=== PATIENT | male | born 1950 | race Caucasian/White ===

== ENCOUNTER 2016-06-16 12:15 | Emergency (ER) | payer OTHER | END 2016-06-16 13:51 | disposition home or self-care (01) | DX: R07.9 Chest pain, unspecified (principal); I10 Essential (primary) hypertension ==

== ENCOUNTER 2018-05-29 11:04 | Outpatient (CLI) | payer MEDICARE, OTHER ==
[2018-05-29 11:37] LABS: BASOPHILS # (AUTO) 0.1 10^3/uL (0.0-0.1); BASOPHILS % (AUTO) 1.5 %; EOSINOPHILS # (AUTO) 0.4 10^3/uL (0.0-0.7); EOSINOPHILS % (AUTO) 5.1 %; HGB - HEMOGLOBIN 16.8 g/dL (14.0-18.0); LYMPHOCYTES # (AUTO) 1.9 10^3/uL (1.5-3.5); MEAN CORPUSCULAR HEMOGLOBIN 26.6 pg (27.0-31.0); MEAN CORPUSCULAR VOLUME 80.6 fL (80.0-94.0); MEAN PLATELET VOLUME 7.8 fL (7.4-11.4); MONOCYTES # (AUTO) 0.6 10^3/uL (0.0-1.0); MONOCYTES % (AUTO) 6.4 %; NEUTROPHILS # (AUTO) 5.6 10^3/uL (1.5-6.6); PLT - PLATELET COUNT 291 10^3/uL (130-450); RED CELL DISTRIBUTION WIDTH 16.7 % (12.0-15.0); WHITE BLOOD COUNT 8.7 x10^3/uL (4.8-10.8)
[2018-05-29 12:10] LABS: ALBUMIN 4.2 g/dL (3.2-5.5); ALBUMIN/GLOBULIN RATIO 1.2 (1.0-2.2); ALKALINE PHOSPHATASE 73 IU/L (42-121); ALT ALANINE AMINOTRANSFERASE 22 IU/L (10-60); AST ASPARTATE AMINOTRANSFERASE 21 IU/L (10-42); BUN - BLOOD UREA NITROGEN 15 mg/dL (6-20); CARBON DIOXIDE - CO2 28 mmol/L (21-32); CHLORIDE 104 mmol/L (101-111); CHOL/HDL RATIO 6.9 (<5.0); CHOLESTEROL 247 mg/dL; CREATININE 1.2 mg/dL (0.6-1.2); GFR - MDRD 61 (>89); GLUCOSE 100 mg/dL (70-100); HDL CHOLESTEROL 36 mg/dL; LDL CHOLESTEROL,CALCULATED 159 mg/dL; LDL/HDL RATIO 4.4 (<3.6); SODIUM 139 mmol/L (135-145); TOTAL PROTEIN 7.7 g/dL (6.7-8.2); VLDL CHOLESTEROL 52 mg/dL
[2018-05-29 12:25] LABS: THYROID STIMULATING HORMONE 5.65 uIU/mL (0.34-5.60)
[2018-05-29 12:29] LABS: FREE T4 (FREE THYROXINE) 0.91 ng/dL (0.58-1.64)
[2018-05-30 13:27] LABS: HEPATITIS C ANTIBODY NON-REACTIVE (NON-REACTIVE)
== END 2018-05-29 11:05 | disposition home or self-care (01) ==
LOC: LAB 11:04
PROVIDERS: ATTEND Internal Medicine
DX: E78.5 Hyperlipidemia, unspecified (principal); E02 Subclinical iodine-deficiency hypothyroidism; I10 Essential (primary) hypertension; E78.3 Hyperchylomicronemia; R35.1 Nocturia; R79.81 Abnormal blood-gas level; Z11.59 Encounter for screening for other viral diseases; Z13.6 Encounter for screening for cardiovascular disorders; Z79.899 Other long term (current) drug therapy
CPT/HCPCS: 36415; 80053; 80061; 83721; 84153; 84439; 84443; 85025; 86803

== ENCOUNTER 2018-12-20 04:06 | Emergency (ER) | payer MEDICARE, OTHER ==
[2018-12-20] MEDS ORDERED: BUFFERED LIDOCAINE 10 ML SYRINGE SUBQ STA (04:20)
[2018-12-20] MEDS ORDERED: TETANUS/DIPHTHERIA/PERTUSSIS 0.5 ML SYRINGE IM ONE (05:45)
[2018-12-20] MEDS ORDERED: AMOX/CLAV 875 MG/125 MG TABLET PO STA (05:45)
--- NOTE | 2018-12-20 05:51 | ED Physician Documentation ---
PD HPI ANIMAL BITE - Stated complaint Stated Complaint: DOGBITE TO FACE - Chief complaint Chief Complaint: Laceration - History obtained from History obtained from: Patient - History of Present Illness Location of injury(ies): Face Details of the event: Dog, Bite, Pet animal, Well appearing, Immunized, Provoked, Animal can be observed, Animal control notified Timing - onset: Today Timing - duration: Minutes Timing - details: Abrupt onset, Still present Improved by: Rest Worsened by: Moving Associated symptoms: No: Weakness, Numbness, Tingling, Swelling, Discolored Contributing factors: No: Immunocompromised, Asplenic Similar symptoms before: Has not had sx before Recently seen: Not recently seen - Additional information Additional information: 68-year-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 He has a significant macerated laceration to the face and some defensive wounds to the left index and middle finger. Review of Systems Constitutional: denies: Fever Ears: denies: Ear pain Nose: denies: Congestion Throat: denies: Sore throat Respiratory: denies: Cough GI: denies: Nausea, Vomiting, Diarrhea Skin: reports: Laceration (s), Bite / sting Musculoskeletal: denies: Neck pain, Back pain, Extremity pain Neurologic: denies: Generalized weakness, Focal weakness, Numbness PD PAST MEDICAL HISTORY - Past Medical History Cardiovascular: Hypertension Respiratory: None Endocrine/Autoimmune: None GI: None : None HEENT: None Psych: None Musculoskeletal: Other Derm: None - Past Surgical History Past Surgical History: Yes General: Cholecystectomy, Colonoscopy HEENT: Tonsil/Adenoidectomy - Present Medications Home Medications: Ambulatory Orders Medication Instructions Recorded Confirmed Metoprolol Succinate 50 mg PO BID 12/11/13 06/16/16 Amlodipine Besylate 5 mg PO DAILY 12/05/14 06/16/16 Doxazosin [Cardura] 4 mg PO QPM 12/05/14 06/16/16 Lisinopril 40 mg PO BID 12/05/14 06/16/16 Amox/Clav 875/125 [Augmentin] 1 each PO Q12H #10 tablet 12/20/18 - Allergies Allergies/Adverse Reactions: Allergies Allergy/AdvReac Type Severity Reaction Status Date / Time No Known Drug Allergies Allergy Verified 12/20/18 04:17 - Social History Does the pt smoke?: No Smoking Status: Never smoker Does the pt drink ETOH?: Yes Does the pt have substance abuse?: No - POLST Patient has POLST: No PD ED PE NORMAL - Vitals Vital signs reviewed: Yes (hypertensive ) - General General: Alert and oriented X 3, No acute distress, Well developed/nourished - HEENT HEENT: PERRL, EOMI, Other (There is an 11 cm jagged C-shaped laceration with mu ltiple flaps along the border of the right cheek. The laceration is deep to the fascia and a tissue plane is . There is free communication under the cheek. There is no obvious contamination. 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, No motor deficit, No sensory deficit, Normal speech Eye Opening: Spontaneous Motor: Obeys Commands Verbal: Oriented GCS Score: 15 - Psych Psych: Normal mood, Normal affect PD ED PE EXPANDED - HEENT HEENT Visual: 1 - laceration (jagged torn edges multiple flaps) 2 - laceration (jagged torn edges multiple flaps) 3 - laceration (jagged torn edges multiple flaps) 4 - laceration (puncture) Results - Vitals Vitals: Vital Signs - 24 hr 12/20/18 04:14 Temperature 36.4 C L Heart Rate 84 Respiratory 18 Rate Blood Pressure 151/109 H O2 Saturation 97 Oxygen O2 Source Room air Procedures - Laceration (location) face Length in cm: 11 Wound type: Curved, Stellate, Irregular, Flap (multiple), Into subcut fat, Clean Neurovascular status: Sensory intact, Motor intact, Vascular intact Anesthesia: Lidocaine 1%, With bicarb Wound Preparation: Hibiclens, Irrigated copiously NS, Wound explored, To the base, Multiple flaps aligned Skin layer closure: Nylon, Interrupted, Size #-0 - enter number (6-0), Sutures - enter # (multiple--5 sticks of suture) Other: Patient tolerated well, No complications, Neurovascular intact, Tetanus booster given Complexity: Intermediate PD MEDICAL DECISION MAKING - ED course Complexity details: reviewed old records, considered differential, d/w patient ED course: 68-year-old male was bit in the face with a provoked attack by a pitbull. The dog has left a macerated laceration to the patient's face which is deep and tore a lot of tissue. The repair was onerous and required alignment of multiple tiny flaps. Scarring will be present. The patient is given a tetanus booster he is placed on antibiotic prophylaxis with Augmentin and instructed return for suture removal in 5 to 6 days. Departure - Departure Disposition: 01 Home, Self Care Clinical Impression: Laceration of face, multiple sites, complicated Dog bite of cheek Qualifiers: Encounter type: initial encounter Laterality: right Qualified Code(s): S01.451A - Open bite of right cheek and temporomandibular area, initial encounter; W54.0XXA - Bitten by dog, initial encounter Condition: Stable Instructions: ED Laceration Facial Sutr Tape Follow-Up: Gaby Shaikh MD [Primary Care Provider] - Prescriptions: Amox/Clav 875/125 [Augmentin] 1 each PO Q12H #10 tablet Comments: Sutures will need to be removed in 5 to 6 days return to the emergency department or follow-up with Dr. Shaikh.
[2018-12-20 06:30] VITALS: BP 150/118
== END 2018-12-20 06:30 | disposition home or self-care (01) ==
LOC: ED 04:06
DX: S01.451A Open bite of right cheek and temporomandibular area, initial encounter (principal); S61.251A Open bite of left index finger without damage to nail, initial encounter; S61.253A Open bite of left middle finger without damage to nail, initial encounter; W54.0XXA Bitten by dog, initial encounter; Y92.009 Unspecified place in unspecified non-institutional (private) residence as the place of occurrence of the external cause; Z23 Encounter for immunization; I10 Essential (primary) hypertension
CPT/HCPCS: 12054; 90471; 90715; 99282; 99284; A9270

== ENCOUNTER 2019-01-25 06:23 | Day surgery (SDC) | payer MEDICARE, OTHER ==
[2019-01-25] MEDS ORDERED: PHENYLEPHRINE 2.5% OPHTH 2 ML DROPS ONE (06:28)
[2019-01-25] MEDS ORDERED: KETOROLAC 0.45% OPHTH DROPS ONE (06:28)
[2019-01-25] MEDS ORDERED: CYCLOPENTOLATE 1% OPHTH DROPS 2 ML ONE (06:28)
[2019-01-25] MEDS ORDERED: PROPARACAINE 0.5% OPHTH DROPS 15 ML ONE (06:28)
[2019-01-25] MEDS ORDERED: CYCLOPENTOLATE 1% OPHTH DROPS 2 ML LEFTEYE ONE (06:45)
[2019-01-25] MEDS ORDERED: PROPARACAINE 0.5% OPHTH DROPS 15 ML LEFTEYE ONE (06:45)
[2019-01-25] MEDS ORDERED: KETOROLAC 0.45% OPHTH DROPS LEFTEYE ONE (06:45)
[2019-01-25] MEDS ORDERED: PHENYLEPHRINE 2.5% OPHTH 2 ML DROPS LEFTEYE ONE (06:45)
[2019-01-25] MEDS ORDERED: LACTATED RINGERS 500 ML IV ONE (06:56)
--- NOTE | 2019-01-25 07:47 | ANESTHESIA ---
Pre-Anesthesia VS, & Labs - Diagnosis nuclear sclerotic cataract - Procedure left cataract extraction with intraocular lens implant Vital Signs: Temp Pulse Resp BP Pulse Ox 36.2 C L 56 L 18 168/99 H 97 01/25/19 06:35 01/25/19 06:35 01/25/19 06:35 01/25/19 06:35 01/25/19 06:35 Height 5 ft 9 in Weight (kg) 102 kg Body Mass Index 34.8 - NPO >8 hours Home Medications and Allergies Metoprolol Succinate 50 mg PO BID 12/11/13 Amlodipine Besylate 5 mg PO DAILY 12/05/14 Doxazosin [Cardura] 4 mg PO QPM 12/05/14 Lisinopril 40 mg PO BID 12/05/14 Allergies/Adverse Reactions: Allergies Allergy/AdvReac Type Severity Reaction Status Date / Time No Known Drug Allergies Allergy Verified 12/20/18 04:17 Anes History & Medical History - Anesthetic History Anesthesia Complications: reports: No previous complications - Medical History Cardiovascular: reports: Hypertension Pulmonary: reports: None Gastrointestinal: reports: None Urinary: reports: None Musculoskeletal: reports: Other Endocrine/Autoimmune: reports: None Skin: reports: None, Other (recent dog bit to the face, healing well, denies pain, still edema) Smoking Status: Never smoker - Surgical History General: Cholecystectomy, Colonoscopy Eyes Ears Nose Throat (EENT): Tonsil/Adenoidectomy Exam General: Alert Dental: WNL Mouth Opening: Greater than 4 Fingerbreadths Neck Mobility: Normal Mallampati classification: II Thyromental Distance: greater than 6 cm Respiratory: Lungs clear Cardiovascular: Regular rate, Normal S1, Normal S2 Mental/Cognitive Status: Alert/Oriented X3 Plan Anesthesia Type: MAC Consent for Procedure(s) Verified and Reviewed: Yes Code Status: Attempt Resuscitation ASA classification: 2-Mild systemic disease Is this case an emergency?: No
[2019-01-25] MEDS ORDERED: MIDAZOLAM 2 MG/2 ML VIAL IVP ONE (08:02)
[2019-01-25] MEDS ORDERED: BRIMONIDINE 0.2% OPHTH DROPS 5 ML OPTH ONE (08:08)
[2019-01-25] MEDS ORDERED: EPINEPHrine 1 MG/ML AMP IVP ONE (08:08)
[2019-01-25] MEDS ORDERED: VANCOMYCIN OPHTHALMI 8MG/0.8ML 8 MG/0.8 ML SYRINGE IO ONE ×2 (08:09→09:51)
[2019-01-25] MEDS ORDERED: CHONDR SULF/HYALURONATE SYRINGE IO ONE (08:09)
[2019-01-25] MEDS ORDERED: TRIAMCIN/MOXIFLOX OPHTHALMIC 0.6 ML VIAL IO ONE ×2 (08:09→09:50)
[2019-01-25] MEDS ORDERED: TIMOLOL 0.5% OPHTH DROPS OPTH ONE (08:09)
[2019-01-25] MEDS ORDERED: BSS/LIDOCAINE/EPINEPHRINE 1 ML SYRINGE IO ONE (08:09)
[2019-01-25 08:35] VITALS: BP 147/81
--- NOTE | 2019-01-25 09:12 | OPERATIVE REPORT ---
DATE OF SERVICE: 01/25/2019 Physician: Juan Goldstein MD PREOPERATIVE DIAGNOSIS: Visually significant cataract, left eye. This was his first cataract surger y. POSTOPERATIVE DIAGNOSIS: Visually significant cataract, left eye. This was his first cataract surge ry. DESCRIPTION OF PROCEDURE: Phacoemulsification with posterior chamber intraocular lens implant, left eye. SURGEON: Juan Goldstein MD ANESTHESIA: Monitored anesthesia care. COMPLICATIONS: None. OPERATIVE INDICATIONS: This is a 68-year-old man with progressive vision loss in the left eye due to 3+ nuclear sclerotic cataract. Best corrected visual acuity was 20/40, with glare to 20/70 in the l eft eye. Indications for surgery were difficulty seeing street signs, difficulty driving in low ligh t or at night, difficulty driving at night because of headlights from other vehicles, and difficulty with glare or bright lights in any situation. He was consented at length concerning risks and benefi ts of cataract surgery, after which he expressed a desire to proceed with surgery. OPERATIVE PROCEDURE: Patient was taken into OR #3 and placed under monitored anesthesia care. A yoel gical timeout was conducted confirming correct patient, correct procedure, and correct surgical site. He was given topical anesthesia, then prepped and draped in the usual sterile fashion. The eye was entered at the 6 and 3 o'clock positions. Intracameral Shugarcaine was injected into the anterior c hamber, followed by Viscoat. A continuous-tear curvilinear capsulorrhexis was performed. The nucleu s was hydrodissected and phacoemulsified. The cortex was evacuated using automated infusion and aspi ration. Provisc was injected in the capsular bag, and a 19.0 diopter intraocular lens was inserted i n the bag. I and A was used to evacuate the viscoelastic materials. The eye was inflated to physiol ogic pressure using balanced salt solution and found to be watertight. Approximately 0.25 mL of a mi xture of triamcinolone, moxifloxacin was injected transsclerally into the vitreous in the inferotempo ral quadrant. An additional 0.55 mL mixture of triamcinolone, moxifloxacin and vancomycin was inject ed subconjunctivally in the superior quadrant for infection and inflammation prophylaxis. Wound inte grity was checked with Weck-Inocencia sponges. Patient was taken from the operating room in good condition and given postoperative instructions. TD: 01/25/2019 08:29
[2019-01-25] MEDS ORDERED: EPINEPHrine 1 MG/ML AMP ONE (09:49)
[2019-01-25] MEDS ORDERED: BRIMONIDINE 0.2% OPHTH DROPS 5 ML ONE (09:50)
[2019-01-25] MEDS ORDERED: BSS/LIDOCAINE/EPINEPHRINE 1 ML SYRINGE ONE (09:50)
[2019-01-25] MEDS ORDERED: TIMOLOL 0.5% OPHTH DROPS ONE (09:51)
== END 2019-01-25 06:24 | disposition home or self-care (01) ==
LOC: SDS 06:23
PROVIDERS: ATTEND Ophthalmology
PROC: 08RK3JZ Replacement of Left Lens with Synthetic Substitute, Percutaneous Approach (ICD-10-PCS; principal; 2019-01-25 08:00)
DX: H25.12 Age-related nuclear cataract, left eye (principal); I10 Essential (primary) hypertension; Z79.899 Other long term (current) drug therapy
CPT/HCPCS: 66984; A9270; J3490; V2632

== ENCOUNTER 2021-02-18 10:14 | Day surgery (SDC) | payer MEDICARE, OTHER ==
[2021-02-18] MEDS ORDERED: LACTATED RINGERS 1,000 ML IV ONE ×2 (10:44→11:40)
[2021-02-18] MEDS ORDERED: PROPOFOL 500 MG/50 ML 500 MG/50 ML VIAL ONE (10:59)
--- NOTE | 2021-02-18 10:59 | ANESTHESIA ---
Pre-Anesthesia VS, & Labs - Diagnosis screening - Procedure colonoscopy Vital Signs: Temp Pulse Resp BP Pulse Ox 36.2 C L 70 12 158/101 H 98 02/18/21 10:38 02/18/21 10:38 02/18/21 10:38 02/18/21 10:38 02/18/21 10:38 Height: 5 ft 11 in Weight (kg): 107 kg Body Mass Index: 32.8 BMI Classification: Obese - NPO >8 hours - Lab Results Lab results reviewed: Yes Home Medications and Allergies Metoprolol Succinate 50 mg PO BID 12/11/13 Amlodipine Besylate 5 mg PO DAILY 12/05/14 lisinopriL [Lisinopril] 40 mg PO BID 12/05/14 Allergies/Adverse Reactions: Allergies Allergy/AdvReac Type Severity Reaction Status Date / Time No Known Drug Allergies Allergy Verified 12/20/18 04:17 Anes History & Medical History - Anesthetic History Anesthesia Complications: reports: No previous complications Family history of Anesthesia Complications: Denies Family history of Malignant Hyperthermia: Denies - Medical History Cardiovascular: reports: Hypertension Pulmonary: reports: None Gastrointestinal: reports: None Urinary: reports: None Musculoskeletal: reports: Other Endocrine/Autoimmune: reports: None Skin: reports: None, Other Smoking Status: Never smoker - Surgical History General: reports: Cholecystectomy, Colonoscopy Eyes Ears Nose Throat (EENT): reports: Tonsil/Adenoidectomy Exam General: Alert, Oriented x3, Cooperative Dental: WNL Mouth Opening: Greater than 4 Fingerbreadths Mallampati classification: II Thyromental Distance: 4-6 cm Respiratory: Lungs clear, Normal breath sounds Cardiovascular: Regular rate Neurological: Normal speech Mental/Cognitive Status: Alert/Oriented X3, Normal for patient Cognitive Status: Within normal limits Plan Anesthesia Type: Total IV Consent for Procedure(s) Verified and Reviewed: Yes Code Status: Attempt Resuscitation ASA classification: 2-Mild systemic disease Is this case an emergency?: No
[2021-02-18 12:08] VITALS: BP 156/98
--- NOTE | 2021-02-18 12:18 | ANESTHESIA POST OP EVALUATION ---
Anesthesia Post Eval - Post Anesthesia Eval Vitals: Last Vital Signs Temp 36.9 C 02/18/21 12:06 Pulse 63 02/18/21 12:06 Resp 11 L 02/18/21 12:06 BP 156/98 H 02/18/21 12:06 Pulse Ox 97 02/18/21 12:06 CV Function Including HR & BP: Stable Pain Control: Satisfactory Nausea & Vomiting: Negative Mental Status: Baseline Respiratory Status: Airway Patent Hydration Status: Satisfactory Anesthesia Complications: None
== END 2021-02-18 10:15 | disposition home or self-care (01) ==
LOC: SDS 10:14
PROVIDERS: ATTEND Surgery
DX: K64.8 Other hemorrhoids (principal); Z12.11 Encounter for screening for malignant neoplasm of colon; E66.9 Obesity, unspecified; Z68.32 Body mass index [BMI] 32.0-32.9, adult; Z86.010 Personal history of colon polyps
CPT/HCPCS: G0105; J7120

== ENCOUNTER 2021-03-20 13:17 | Outpatient (CLI) | payer MEDICARE, OTHER ==
[2021-03-20 14:01] LABS: CREATININE 1.3 mg/dL (0.6-1.2)
[2021-03-20] MEDS ORDERED: IOVERSOL 320 100 ML VIAL IVP ONE (15:14)
[2021-03-20] MEDS ORDERED: IOPAMIDOL-300 50 ML VIAL ONE (15:51)
== END 2021-03-20 13:18 | disposition home or self-care (01) ==
LOC: DI 13:17
PROVIDERS: ATTEND Surgery
DX: R10.32 Left lower quadrant pain (principal)
CPT/HCPCS: 36415; 82565

== ENCOUNTER 2023-05-11 11:02 | Outpatient (CLI) | payer MEDICARE, OTHER ==
[2023-05-11 11:46] LABS: THYROID STIMULATING HORMONE 5.88 uIU/mL (0.34-5.60)
[2023-05-11 14:10] LABS: CALCIUM 10.1 mg/dL (8.5-10.3); CREATININE 1.3 mg/dL (0.6-1.3); POTASSIUM 4.4 mmol/L (3.5-4.5)
== END 2023-05-11 11:03 | disposition home or self-care (01) ==
LOC: LAB 11:02
PROVIDERS: ATTEND Internal Medicine
DX: I50.9 Heart failure, unspecified (principal); Z79.899 Other long term (current) drug therapy
CPT/HCPCS: 36415; 80048; 83880; 84443

== ENCOUNTER 2023-08-08 10:29 | Outpatient (CLI) | payer MEDICARE, OTHER ==
[2023-08-08 10:42] LABS: BASOPHILS # (AUTO) 0.1 10^3/uL (0.0-0.1); BASOPHILS % (AUTO) 0.9 %; EOSINOPHILS # (AUTO) 0.4 10^3/uL (0.0-0.7); EOSINOPHILS % (AUTO) 4.1 %; HCT - HEMATOCRIT 51.9 % (42.0-52.0); HGB - HEMOGLOBIN 16.6 g/dL (14.0-18.0); LYMPHOCYTES # (AUTO) 2.1 10^3/uL (1.5-3.5); LYMPHOCYTES % (AUTO) 22.3 %; MEAN CORPUSCULAR HEMOGLOBIN 27.2 pg (27.0-31.0); MEAN CORPUSCULAR VOLUME 84.9 fL (80.0-94.0); MEAN PLATELET VOLUME 9.1 fL (7.4-11.4); MONOCYTES # (AUTO) 0.7 10^3/uL (0.0-1.0); MONOCYTES % (AUTO) 7.1 %; NEUTROPHILS # (AUTO) 6.2 10^3/uL (1.5-6.6); NEUTROPHILS % (AUTO) 65.2 %; PLT - PLATELET COUNT 293 10^3/uL (130-450); RED BLOOD COUNT 6.11 10^6/uL (4.70-6.10); RED CELL DISTRIBUTION WIDTH 15.1 % (12.0-15.0); WHITE BLOOD COUNT 9.6 x10^3/uL (4.8-10.8)
[2023-08-08 11:07] LABS: ALBUMIN/GLOBULIN RATIO 1.4 (1.0-2.2); ALKALINE PHOSPHATASE 55 IU/L (42-121); ALT ALANINE AMINOTRANSFERASE 20 IU/L (10-60); AST ASPARTATE AMINOTRANSFERASE 17 IU/L (10-42); BILIRUBIN,TOTAL 0.6 mg/dL (0.2-1.0); BUN - BLOOD UREA NITROGEN 25 mg/dL (6-20); CALCIUM 9.7 mg/dL (8.5-10.3); CARBON DIOXIDE - CO2 28 mmol/L (21-32); CHLORIDE 105 mmol/L (101-111); CHOL/HDL RATIO 5.1 (<5.0); CHOLESTEROL 202 mg/dL; CREATININE 1.5 mg/dL (0.6-1.3); GFR - MDRD 46 (>89); GLUCOSE 99 mg/dL (74-104); HDL CHOLESTEROL 40 mg/dL; LDL CHOLESTEROL,CALCULATED 113 mg/dL; LDL/HDL RATIO 2.8 (<3.6); POTASSIUM 4.4 mmol/L (3.5-4.5); SODIUM 138 mmol/L (135-145); TOTAL PROTEIN 6.9 g/dL (6.4-8.9); TRIGLYCERIDES 246 mg/dL (48-352); VLDL CHOLESTEROL 49 mg/dL
== END 2023-08-08 10:30 | disposition home or self-care (01) ==
LOC: LAB 10:29
PROVIDERS: ATTEND Internal Medicine
DX: Z00.00 Encounter for general adult medical examination without abnormal findings (principal); I12.9 Hypertensive chronic kidney disease with stage 1 through stage 4 chronic kidney disease, or unspecified chronic kidney disease; N18.9 Chronic kidney disease, unspecified; E78.1 Pure hyperglyceridemia; R73.01 Impaired fasting glucose; E03.8 Other specified hypothyroidism; Z79.899 Other long term (current) drug therapy; R35.0 Frequency of micturition
CPT/HCPCS: 36415; 80053; 80061; 83721; 84443; 85025